=== PATIENT | male | born 1965 | race Caucasian/White ===

== ENCOUNTER → 2020-05-03 | Outpatient (CLI) | payer MEDICARE ==
[~2020-05-03] MED LIST: AMOXICILLIN500 MG PO; ATIVAN0.5 MG PO; ATIVAN1 MG PO; Amitriptyline H10 MG PO; B-1100 MG PO; B12,B-12,B 12500 MC1 PO; BACTRIM DS 8001 TA1 PO; CLARITIN-D 10 M1 T24 PO; COLACE100 MG PO; DECADRON4 M1 PO; DIAZEPAM10 M1 PO; DOCUSATE SOD100 MG PO; FOLIC ACID1 MG PO; GABAPENTIN300 MG PO; HEPARIN5000 UNIT/ SC; HYDROCODONE BIT1 T11 PO; KEFLEX 500 MG E2 CAP PO; LIORESAL10 MG PO; LYRICA75 M1 PO; MULTIPLE VITAMI1 TAB PO; NOVOLIN R100 U/ML SC; OMEPRAZOLE20 MG PO; ONDANSETRON HYDR4 M1 PO; PERCOCET 325 MG1 TA6 PO; SODIUM CHLORIDE1 GM PO; SOMA350 MG PO; TESSALON PERLE100 M1 PO; TIZANIDINE HCL4 MG PO; XANAX0.5 MG PO; [UNRECOGNIZED DRUG - OTHER] TD
== END | disposition home or self-care (01) ==
LOC: RAD 15:45
PROVIDERS: ATTEND Nurse Practitioner Family
DX: D3A.090 Benign carcinoid tumor of the bronchus and lung (principal)

== ENCOUNTER → 2020-05-06 | Outpatient (CLI) | payer MEDICARE ==
[2020-05-06 16:26] LABS: FERRITIN 137.5 ng/mL (22.0-322.0)
== END | disposition home or self-care (01) ==
LOC: LAB 14:38
PROVIDERS: ATTEND Nurse Practitioner Family
DX: D64.9 Anemia, unspecified (principal)

== ENCOUNTER 2020-06-13 15:05 | Inpatient (IN) | payer MEDICARE ==
[~2020-06-13] VITALS: Ht 180.3 cm; Wt 80.8 kg
[2020-06-13 15:24] VITALS: BP 150/80
[2020-06-13 16:00] VITALS: BP 171/86
[2020-06-13 16:08] LABS: HEMATOCRIT 38.1 % (42.0-52.0); MEAN CELL VOLUME 94.3 fl (80.0-94.0); MEAN CORPUSCULAR HGB 30.7 pg (27.0-31.0); MEAN CORPUSCULAR HGB CONC 32.5 g/dl (33.0-37.0); MEAN PLATELET VOLUME 10.6 fl (9.6-12.3); PLATELET COUNT AUTOMATED 263 10*3/uL (130-400); RED BLOOD COUNT 4.04 10*6/uL (4.50-5.90); RED CELL DISTRI WIDTH 12.7 % (0-14.5); WHITE BLOOD COUNT 6.5 10*3/uL (4.8-10.8)
[2020-06-13 16:29] LABS: BILIRUBIN Negative (Negative); BLOOD Negative (Negative); CLARITY Clear (Clear); COLOR Yellow (Yellow); GLUCOSE Negative (Negative); KETONE Negative (Negative); LEUKO ESTERASE 1+ (Negative); NITRITE Positive (Negative); PH 7.5 (4.5-8.0); UROBILINOGEN 0.2 E.U./dl (0.0-1.0)
[2020-06-13 16:32] LABS: ATYPICAL LYMPHS 1 % (0-0); PLATELET SUFFICIENCY NORMAL (NORMAL); TOTAL CELLS COUNTED 100 #CELLS
[2020-06-13 16:32] LABS: ALBUMIN 3.5 gm/dl (3.1-4.5); ALKALINE PHOSPHATASE 98 U/L (45-117); BUN 10 mg/dl (7-24); CHLORIDE 102 mmol/L (98-107); POTASSIUM 4.2 mmol/L (3.5-5.1); SGOT/AST 26 IU/L (3-35); SGPT/ALT 25 U/L (12-78); SODIUM 136 mmol/L (136-145); TOTAL PROTEIN 7.3 gm/dL (6.4-8.2)
[2020-06-13 16:36] LABS: URINE AMPHETAMINES < 1000 (1000ng/ml); URINE BARBITURATES < 200 (200ng/ml); URINE BENZODIAZEPINES < 200 (200ng/ml); URINE CANNABINOIDS (THC) < 50 (50ng/ml); URINE COCAINE < 300 (300ng/ml); URINE METHADONE < 300 (300ng/ml); URINE OPIATES < 300 (300ng/ml)
[2020-06-13 16:45] LABS: URINE PHENCYCLIDINE < 25 (25ng/ml)
[2020-06-13 16:45] LABS: ETHYL ALCOHOL < 3.0 mg/dl (<3)
[2020-06-13 16:51] LABS: BACTERIA 3+
--- NOTE | 2020-06-13 17:09 | NUR ---
PATIENT MEETS [facility]. PATIENT WANTS TO FOLLOW UP WITH [facility] FOR HIS AFTERCARE PLAN. EMMANUEL TOTH B.A. SALES REVIEW CLERK
--- NOTE | 2020-06-13 20:18 | NUR ---
PROBLEM WITH PULLING SUBUTEX FROM [facility]. CONTACT PHARMACY. MED GIVEN WITHOUT INCIDENT.
--- NOTE | 2020-06-13 20:20 | NUR ---
CALLED ED PERTAINING TO BRINGING UP PATIENT & SPOKE TO COLT, KNURLING MACHINE OPERATOR. SHE STATED THAT JADEN WAS BRINGING THE PATIENTS UP TO THE FLOOR.
[2020-06-13 21:00] VITALS: BP 171/86
--- NOTE | 2020-06-13 21:10 | NUR ---
WHILE DOING PATIENT'S ADMISSION HE STATES THAT HE HAS NO PCP & THAT HIS BLOOD PRESSURE HAS BEEN UP FOR MONTHS. EXPRESSES CONCERN OVER NEEDING A PCP. ALSO STATES THAT HE WOULD LIKE A SOCIAL SERVICE CONSULT FOR SOMEONE TO HELP CLEAN HIS HOUSE & DO GROCERY SHOPPING FOR HIM. ALSO CONCERNED REGARDING TAKING HIS VITAMINS THIS EVENING. INFORMED PATIENT THAT I WOULD LET Maria Del Carmen KNOW.
--- NOTE | 2020-06-13 21:20 | NUR ---
54 year old M admitted to room # 501 for stabilization. Reports an addiction to last used hours prior to admission. Compliant with admission procedure. Patient denies any anxiety, but is unable to sit still, taps toes to floor continuously, looks about room, unable to focus eyes on nurse during interview. See assessment forms for additional information about patient status.
[2020-06-13] MEDS ORDERED: PREGABALIN150 MG PO (21:33)
[2020-06-13] MEDS ORDERED: DULCOLAX10 M1 R (21:34)
[2020-06-13] MEDS ORDERED: PERCOCET 7.5-31 EACH PO (21:34)
[2020-06-13] MEDS ORDERED: NATURAL SENNA8.6 MG PO (21:36)
[2020-06-13] MEDS ORDERED: PROVENTIL HFA6.7 GM INH (21:37)
[2020-06-13] MEDS ORDERED: VITAMIN D350 MC2 PO (21:39)
[2020-06-13] MEDS ORDERED: LIPITOR10 MG PO (21:39)
[2020-06-13] MEDS ORDERED: GLUCOPHAGE500 M1 PO (21:40)
[2020-06-13] MEDS ORDERED: PERCOCET 5-3251 EACH PO (21:41)
--- NOTE | 2020-06-13 21:50 | NUR ---
RECEIVED REPORT FROM LAMBERTO PENA.
--- NOTE | 2020-06-13 22:00 | NUR ---
DR. AMES INFORMED EARLIER OF UPDATE IN PATIENT'S MEDICATIONS. ALSO INFORMED M.D. OF ELEVATED BLOOD PRESSURE AND ALSO OF PATIENTS CONCERNS TO TAKE HIM VITAMINS AND OTHER HOME MEDICATIONS HE NEEDS THIS EVENING.
--- NOTE | 2020-06-13 22:35 | NUR ---
BACK TO SEE PATIENT & INFORMED HIM THAT Maria Del Carmen IS GOING OVER HIS HOME MEDICATIONS. PT. STATES THAT HE DOES NOT WANT TO TAKEN AEROSOL TX'S AND HE WANTS HIS ZANAFLEX. INFORMED Maria Del Carmen
--- NOTE | 2020-06-13 22:49 | NUR ---
PT. REQUESTING SENOKOT & A DULCOLAX SUPPOSITORY.
[2020-06-14] VITALS: BP 144/91
--- NOTE | 2020-06-14 02:02 | NUR ---
MEDICATED WITH TRAZODONE PER PT'S REQUEST.
--- NOTE | 2020-06-14 04:00 | NUR ---
RESTING IN BED WITH EYES CLOSED; TRAZODONE APPARENTLY EFFECTIVE.
[2020-06-14 08:00] VITALS: BP 129/65
--- NOTE | 2020-06-14 08:38 | NUR ---
[place] STAFF IN TO SEE PATIENT. PATIENT IS WANTING TO FOLLOW UP WITH [facility] FOR [facility]. EMMANUEL TOTH B.A. PRODUCT MANAGER
[2020-06-14 12:00] VITALS: BP 130/79
--- NOTE | 2020-06-14 12:51 | NUR ---
PATIENT DOING WELL WITH PERSCRIBED TAPER MEDS. GAVE REQUIP FOR VISIBLE RESTLESS LEG PERSCRIBED..SE EMAR. PATIENT REQUEST TO SEE COOPERATIVE EDUCATION DIRECTOR DUE TO HE IS NEW TO [facility] AND NEEDS HELP WITH FINDING PCP AND ONGOING HEALTH ISSUES. SPOKE TO CASE MANAGEMENT. SHE WILL TALK TO HIM.
--- NOTE | 2020-06-14 13:56 | NUR ---
GREASE MACHINE WORKER SPOKE WITH THE PATIENT. PATIENT STATED THAT HE IS INTERESTED IN LOOKING FOR A NEW DOCTOR. HE ALSO STATED HE WOULD BE INTERESTED IN A PAIN MANAGEMENT CLINIC. GREASE MACHINE WORKER SPOKE WITH THE PATIENT ABOUT BEING SEEN IN THE [facility]. PATIENT WAS AGREEABLE. GREASE MACHINE WORKER SPOKE WITH RN HOSPITALIST COORDINATOR JAQUELIN. SHE STATED THAT SHE HAD ALREADY EMAILED THE [facility] ABOUT AN APPOINTMENT. GREASE MACHINE WORKER CONTACTED DR. TOM OFFICE ABOUT THEIR PAIN MANAGEMENT. DR. CANDACE HELMS IS SEEING THE PATIENTS BUT A REFERRAL IS NEEDED. GREASE MACHINE WORKER WILL SPEAK WITH RN HOSPITALIST COORDINATOR JAQUELIN ABOUT A REFERRAL. GREASE MACHINE WORKER WILL FOLLOW UP WITH THE PATIENT.
[2020-06-14 16:00] VITALS: BP 105/62
[2020-06-14 20:00] VITALS: BP 122/65
--- NOTE | 2020-06-14 20:06 | NUR ---
PO VISTARIL GIVEN PER PRN ORDER FOR INCREASED ANXIETY/AGITATION. WILL MONITOR EFFECTIVENESS. CALL LIGHT IN REACH.
--- NOTE | 2020-06-14 21:00 | NUR ---
PT STATES EARLIER MEDS EFFECTIVE. WILL MONITOR.
--- NOTE | 2020-06-14 22:22 | NUR ---
PO REQUIP AND TRAZODONE GIVEN FOR C/O RESTLESS LEGS AND INSOMNIA. NICODERM PATCH APPLIED TO L UPPER ARM. OLD PATCH TO R UPPER ARM DISCARDED. WILL MONITOR. CALL LIGHT IN REACH.
--- NOTE | 2020-06-14 22:34 | NUR ---
PT REQUESTED AND RECEIVED PO SENNA FOR C/O CONSTIPATION. WILL MONITOR. CALL LIGHT IN REACH.
--- NOTE | 2020-06-14 23:20 | NUR ---
EARLIER MEDS APPEAR EFFECTIVE. PT ASLEEP IN BED. NO S/S OF DISTRESS NOTED. WILL MONITOR. CALL LIGHT IN REACH.
[2020-06-15] VITALS: BP 123/65
--- NOTE | 2020-06-15 01:07 | NUR ---
SCHEDULED SUBUTEX GIVEN PER ORDER. PT DENIES ANY OTHER NEEDS. WILL MONITOR. CALL LIGHT IN REACH.
--- NOTE | 2020-06-15 02:30 | NUR ---
PT ASLEEP IN BED. NO S/S OF DISTRESS NOTED. WILL MONITOR. CALL LIGHT IN REACH.
--- NOTE | 2020-06-15 06:18 | NUR ---
PO MOTRIN GIVEN FOR BLL PAIN/STIFFNESS RATED 9/10. PO VISTARIL ALSO GIVEN FOR C/O ANXIETY/RESTLESSNESS. WILL MONITOR EFFECTIVENESS. CALL LIGHT IN REACH.
[2020-06-15 08:00] VITALS: BP 124/70
--- NOTE | 2020-06-15 11:54 | NUR ---
[place] STAFF IN TO SEE PATIENT. PATIENT'S AFTERCARE REAMINS THE SAME. PATIENT WILL BE FOLLOWING UP WITH [facility] ON SATURDAY, May AT THEIR [facility] CLINIC. EMMANUEL TOTH B.A. INTAKE COORDIANTOR
[2020-06-15 12:00] VITALS: BP 101/55
--- NOTE | 2020-06-15 13:51 | NUR ---
PT REQUESTED AND WAS MEDICATE WITH MOTRIN FOR C/O GENERALIED PAIN. CALL LIGHT IN REACH. WILL MONITOR
--- NOTE | 2020-06-15 14:30 | NUR ---
ANGELA EFFECTIVE PER PT. WILL MONITOR
[2020-06-15 16:00] VITALS: BP 110/68
[2020-06-15 20:00] VITALS: BP 124/66
--- NOTE | 2020-06-15 20:11 | NUR ---
PO VISTARIL GIVEN FOR C/O ANXIETY. PO SENNA GIVEN FOR C/O CONSTIPATION. NICOTINE PATCH PLACED ON R UPPER ARM. WILL MONITOR EFFECTIVENESS. CALL LIGHT IN REACH.
--- NOTE | 2020-06-15 20:34 | NUR ---
PT C/O PAIN IN BLL. PAIN IS CHRONIC, BUT INCREASED AT THIS TIME PER PT. PT REQUESTING ICY HOT AND MORE MEDICATION. NOTIFIED. NEW ORDERS RECEIVED. PT ALSO VERY UPSET THAT HE IS NOT GETTING A ZANAFLEX BEFORE BED. RN EXPLAINED THAT HE ALREADY RECEIVED 3 DOSES TODAY AROUND 1000, 1400, & 1800. ORDER CHANGED TO REFLECT PATIENT'S HOME SCHEDULE AND TO SPACE OUT MEDICATION ADMINISTRATION TIMES. PT TO RECEIVE ZANAFLEX AT 0600, 1400, & 2200. PT AWARE HE WILL NOT RECEIVE NEXT DOSE UNTIL TOMORROW AT 0600. PT VERBALIZES UNDERSTANDING AND SEEMS PLEASED WITH EFFORT. PT REQUESTING RN TO WRITE DOWN MEDICATIONS THAT HE RECEIVED AROUND 2000 AND ONES HE WILL RECEIVE AROUND 2200. RN WROTE DOWN MEDICATIONS FOR PT REQUESTED. WILL CONTINUE TO MONITOR. CALL LIGHT IN REACH.
--- NOTE | 2020-06-15 21:00 | NUR ---
EARLIER MEDS APPEAR EFFECTIVE PER PT.
--- NOTE | 2020-06-15 22:01 | NUR ---
SCHEDULED SUBUTEX GIVEN AT THIS TIME. PO TRAZODONE GIVEN FOR C/O INSOMNIA. PO MOTRIN AND BLUE GEL GIVEN FOR C/O BLL PAIN RATED 9/10. PO REQUIP GIVEN FOR RESTLESS LEGS. PO ROBAXIN GIVEN FOR CRAMPING IN BLL.
--- NOTE | 2020-06-15 23:00 | NUR ---
EARLIER MEDS EFFECTIVE PER PT.
[2020-06-16] VITALS: BP 147/73
--- NOTE | 2020-06-16 02:47 | NUR ---
PO TYLENOL GIVEN FOR BLL PAIN RATED 9/10. PO VISTARIL GIVEN FOR C/O ANXIETY. PO ZOFRAN GIVEN FOR C/O NAUSEA. WILL MONITOR EFFECTIVENESS.
--- NOTE | 2020-06-16 03:45 | NUR ---
PT SLEEPING. NO FURTHER COMPLAINTS OF PAIN, ANXIETY, OR NAUSEA.
--- NOTE | 2020-06-16 05:32 | NUR ---
PO ZANAFLEX GIVEN FOR C/O MUSCLE SPASMS IN LEGS. PO MOTRIN GIVEN FOR C/O PAIN IN BLL RATED 8/10. BLUE GEL ALSO PROVIDED FOR C/O PAIN IN LEGS. WILL MONITOR EFFECTIVENESS. CALL LIGHT IN REACH.
[2020-06-16 06:17] LABS: BASO % 0.6 % (0.0-1.0); EOS # 0.3 10*3/uL (0.0-0.4); EOS % 5.3 % (1.0-4.0); HEMATOCRIT 35.2 % (42.0-52.0); LYMPH # 1.9 10*3/uL (1.3-4.4); LYMPH % 36.7 % (27.0-41.0); MEAN CELL VOLUME 95.1 fl (80.0-94.0); MEAN CORPUSCULAR HGB 30.8 pg (27.0-31.0); MEAN CORPUSCULAR HGB CONC 32.4 g/dl (33.0-37.0); MEAN PLATELET VOLUME 10.8 fl (9.6-12.3); MONO # 0.6 10*3/uL (0.1-1.0); MONO % 12.1 % (3.0-9.0); NEUT # 2.4 10*3/uL (2.3-7.9); NEUT % 45.3 % (47.0-73.0); PLATELET COUNT AUTOMATED 276 10*3/uL (130-400); RED CELL DISTRI WIDTH 12.9 % (0-14.5); WHITE BLOOD COUNT 5.3 10*3/uL (4.8-10.8)
[2020-06-16 06:23] LABS: CREATININE 0.96 mg/dL (0.70-1.30)
--- NOTE | 2020-06-16 06:30 | NUR ---
EARLIER MEDS APPEAR EFFECTIVE. PT ASLEEP IN BED. NO S/S OF DISTRESS NOTED. WILL MONITOR.
[2020-06-16 08:00] VITALS: BP 100/55
--- NOTE | 2020-06-16 08:30 | NUR ---
Patient resting quietly with no c/o discomfort. Respirations easy and regular. Vital signs stable. No overt distress. ALBAN CHASE R
[2020-06-16] MEDS ORDERED: AMOXICILLIN875 MG PO (10:27)
[2020-06-16] MEDS ORDERED: TRAZODONE50 MG PO (11:05)
[2020-06-16] MEDS ORDERED: METHOCARBAMOL750 M1 PO (11:05)
[2020-06-16] MEDS ORDERED: ATARAX,VISTARIL50 MG PO (11:05)
[2020-06-16] MEDS ORDERED: ZOFRAN 4 MG ED2 TAB PO (11:05)
[2020-06-16] MEDS ORDERED: ROPINIROLE HYD0.5 MG PO (11:05)
--- NOTE | 2020-06-16 11:47 | NUR ---
PT. REFUSED AEROSOL TREATMENT. STATES HE IS BEING DISCHARGED
--- NOTE | 2020-06-16 13:12 | NUR ---
Discharge instructions reviewed with patient/family. Patient receptive and verbalizes understanding. Follow-up care arranged. Written instructions given to patient/family. ALBAN CHASE
== END 2020-06-16 13:12 | disposition home or self-care (01) | DRG 896 ==
LOC: ED 15:05 → EDHOLD 16:42 → 5E 16:42
PROVIDERS: Hospitalist; Nurse Practitioner Family; ADMIT Internal Medicine; ATTEND Internal Medicine
DX: F11.23 Opioid dependence with withdrawal (principal); R53.2 Functional quadriplegia; N30.00 Acute cystitis without hematuria; G83.9 Paralytic syndrome, unspecified; J44.9 Chronic obstructive pulmonary disease, unspecified; F41.9 Anxiety disorder, unspecified; D64.9 Anemia, unspecified; R73.03 Prediabetes; G62.9 Polyneuropathy, unspecified; Z85.110 Personal history of malignant carcinoid tumor of bronchus and lung; Z82.49 Family history of ischemic heart disease and other diseases of the circulatory system; Z82.61 Family history of arthritis

== ENCOUNTER → 2020-09-02 | Outpatient (CLI) | payer MEDICARE ==
[~2020-09-02] MED LIST changes: +AMOXICILLIN875 MG PO; +ATARAX,VISTARIL50 MG PO; +DULCOLAX10 M1 R; +GLUCOPHAGE500 M1 PO; +LIPITOR10 MG PO; +METHOCARBAMOL750 M1 PO; +NATURAL SENNA8.6 MG PO; +PERCOCET 5-3251 EACH PO; +PERCOCET 7.5-31 EACH PO; +PREGABALIN150 MG PO; +PROVENTIL HFA6.7 GM INH; +ROPINIROLE HYD0.5 MG PO; +TRAZODONE50 MG PO; +VITAMIN D350 MC2 PO; +ZOFRAN 4 MG ED2 TAB PO
[2020-09-02 14:38] LABS: MEAN CELL VOLUME 90.5 fl (80.0-94.0); MEAN CORPUSCULAR HGB 29.8 pg (27.0-31.0); MEAN PLATELET VOLUME 10.8 fl (9.6-12.3); PLATELET COUNT AUTOMATED 263 10*3/uL (130-400); RED BLOOD COUNT 4.09 10*6/uL (4.50-5.90); RED CELL DISTRI WIDTH 13.7 % (0-14.5); WHITE BLOOD COUNT 5.9 10*3/uL (4.8-10.8)
[2020-09-02 15:02] LABS: BASOPHILS 1 % (0-1); PLATELET SUFFICIENCY NORMAL (NORMAL); TOTAL CELLS COUNTED 100 #CELLS
[2020-09-02 15:04] LABS: ALBUMIN 3.6 gm/dl (3.1-4.5); ALKALINE PHOSPHATASE 112 U/L (45-117); BILIRUBIN, DIRECT < 0.1 mg/dL (0.0-0.2); BUN 15 mg/dl (7-24); CHLORIDE 101 mmol/L (98-107); CREATININE 0.77 mg/dL (0.70-1.30); POTASSIUM 4.4 mmol/L (3.5-5.1); SGOT/AST 25 IU/L (3-35); SGPT/ALT 29 U/L (12-78); SODIUM 134 mmol/L (136-145); TOTAL PROTEIN 7.7 gm/dL (6.4-8.2)
[2020-09-03 09:07] LABS: HEP B CORE AB, IGM Negative (Negative); HEPATITIS B SURFACE AG Negative (Negative)
[2020-09-05 10:16] LABS: HEPATITIS C VIRUS ANTIBODY >11.0 s/co (0.0-0.9)
[2020-09-07 18:07] LABS: TB1 Ag VALUE 0.18 IU/mL (.)
== END | disposition home or self-care (01) ==
LOC: LAB 14:06
PROVIDERS: ATTEND Registered Nurse Critical Care Medicine
DX: F11.20 Opioid dependence, uncomplicated (principal); F14.11 Cocaine abuse, in remission

== ENCOUNTER → 2020-10-19 | Outpatient (CLI) | payer MEDICARE ==
[2020-10-21 00:06] LABS: HEPATITIS C QNT HCV Not Detected IU/mL (.)
== END | disposition home or self-care (01) ==
LOC: LAB 12:01
PROVIDERS: ATTEND Internal Medicine Gastroenterology
DX: B19.20 Unspecified viral hepatitis C without hepatic coma (principal)

== ENCOUNTER → 2021-03-21 | Outpatient (CLI) | payer MEDICARE, OTHER | END | disposition home or self-care (01) | LOC: US 16:00 | PROVIDERS: ATTEND Family Medicine | DX: N50.3 Cyst of epididymis (principal) ==

== ENCOUNTER 2024-01-03 16:17 | Emergency (ER) | payer OTHER ==
[~2024-01-03] VITALS: Ht 180.3 cm; Wt 83.9 kg
[2024-01-03] MEDS ORDERED: AMOX-CLAV 875-1 EACH PO (17:10)
[2024-01-03] MEDS ORDERED: TYLENOL325 M1 PO (17:10)
[2024-01-03] MEDS ORDERED: IBUPROFEN600 MG PO (17:10)
[2024-01-03] MEDS ORDERED: Acetaminophen/Oxycodone Hydr 7.5 MG/325 MG TABLET PO ONE (17:10)
== END 2024-01-03 17:42 | disposition home or self-care (01) ==
LOC: ED 16:17
DX: K04.7 Periapical abscess without sinus (principal); J44.9 Chronic obstructive pulmonary disease, unspecified; F11.10 Opioid abuse, uncomplicated; F17.200 Nicotine dependence, unspecified, uncomplicated; Z90.89 Acquired absence of other organs; Z98.890 Other specified postprocedural states

== ENCOUNTER → 2024-11-02 | Outpatient (CLI) | payer OTHER ==
[~2024-11-02] MED LIST changes: +AMOX-CLAV 875-1 EACH PO; +IBUPROFEN600 MG PO; +TYLENOL325 M1 PO
[2024-11-02 15:00] LABS: ALKALINE PHOSPHATASE 94 U/L (46-116); BUN 14 mg/dl (9-23); CHLORIDE 102 mmol/L (98-107); CHOLESTEROL 140 mg/dL (<200); LDL CHOLESTEROL 80 mg/dL (9-159); SGPT/ALT 20 U/L (5-49); TOTAL PROTEIN 7.2 gm/dL (6.0-8.0); TRIGLYCERIDES 90 mg/dl (<150)
== END | disposition home or self-care (01) ==
LOC: LAB 14:13
PROVIDERS: ATTEND Family Medicine
DX: Z12.5 Encounter for screening for malignant neoplasm of prostate (principal); R73.03 Prediabetes